=== PATIENT | male | born 1960 | race Caucasian/White ===

== ENCOUNTER 2016-08-23 14:39 | Emergency (ER) | payer MEDICARE ==
[~2016-08-23] VITALS: Ht 190.5 cm; Wt 85.0 kg
[~2016-08-23 14:39] MED LIST: ASPI-496 PO; LACO100T PO
[2016-08-23] MEDS ORDERED: HYDROmorphone 1 MG/ML, 1ML IM STA (16:00)
[2016-08-23] MEDS ORDERED: HYDROmorphone 1 MG/ML, 1ML ONE (16:09)
[2016-08-23] MEDS ORDERED: LIDOCAINE 1%-EPI 1:100K, 20ML SQ ONE (16:30)
[2016-08-23 17:28] VITALS: BP 122/77
== END 2016-08-23 17:31 | disposition home or self-care (01) ==
LOC: ED 17:25
DX: K64.5 Perianal venous thrombosis (principal)
CPT/HCPCS: 46083; 96372; 99284; J1170

== ENCOUNTER 2016-08-25 08:12 | Emergency (ER) | payer MEDICARE ==
[~2016-08-25] VITALS: Ht 190.5 cm; Wt 84.4 kg
[2016-08-25] MEDS ORDERED: L.E.T SOLUTION TP ONE ×4 (08:59→10:21)
[2016-08-25] MEDS ORDERED: ONDANSETRON ODT 4 MG ONE (09:37)
[2016-08-25] MEDS ORDERED: LIDOCAINE 1%, 20ML ONE (09:37)
[2016-08-25] MEDS ORDERED: HYDROmorphone 1 MG/ML, 1ML ONE (09:37)
[2016-08-25] MEDS ORDERED: LIDOCAINE 1%, 20ML SQ ONE (10:30)
[2016-08-25] MEDS ORDERED: ONDANSETRON ODT 4 MG PO ONE (10:30)
[2016-08-25] MEDS ORDERED: HYDROmorphone 1 MG/ML, 1ML IM ONE (10:30)
[2016-08-25 11:25] VITALS: BP 142/78
== END 2016-08-25 11:27 | disposition home or self-care (01) ==
LOC: ED 08:26
DX: K64.5 Perianal venous thrombosis (principal)
CPT/HCPCS: 99283

== ENCOUNTER 2016-10-27 08:11 | Emergency (ER) | payer MEDICARE ==
[~2016-10-27] VITALS: Ht 190.5 cm; Wt 85.0 kg
[~2016-10-27 08:11] MED LIST changes: +LACO200T PO
[2016-10-27] MEDS ORDERED: MULT-516 PO (08:30)
[2016-10-27] MEDS ORDERED: KETOROLAC 30 MG/1 ML ONE (08:45)
[2016-10-27] MEDS ORDERED: METOCLOPRAMIDE 5 MG/ML, 2ML ONE (08:45)
[2016-10-27] MEDS ORDERED: DIAZEPAM 5 MG/ML, 2ML IV ONE (09:00)
[2016-10-27] MEDS ORDERED: METOCLOPRAMIDE 5 MG/ML, 2ML IVPush ONE (09:00)
[2016-10-27] MEDS ORDERED: KETOROLAC 30 MG/1 ML IVPush ONE (09:00)
[2016-10-27] MEDS ORDERED: SODIUM CHLORIDE FLUSH 10ML SYR IVF ONE (09:00)
[2016-10-27] MEDS ORDERED: SODIUM CHLORIDE 0.9% 1,000ML IVBOLUS ONE (09:00)
[2016-10-27 11:07] VITALS: BP 104/46
== END 2016-10-27 11:12 | disposition home or self-care (01) ==
LOC: ED 08:25
DX: M50.120 Mid-cervical disc disorder, unspecified level (principal)
CPT/HCPCS: 72050; 72125; 96361; 96374; 96375; 99285; J1885; J2765; J3360; J7030